=== PATIENT | male | born 1980 | race Caucasian/White ===

== ENCOUNTER 2016-10-25 13:25 | Day surgery (SDC) | payer BC ==
[~2016-10-25] VITALS: Ht 188 cm; Wt 106.0 kg
[~2016-10-25 13:25] MED LIST: BACTRIM,SEPT1 TABLET PO; CENTRUM COMPLE1 EACH PO; CIPRO500 MG PO; NORCO 5/3251 TABLET PO; OMNICEF300 MG PO; SUDOGEST60 MG PO
[2016-10-25] MEDS ORDERED: MOTRIN IB200 MG PO (13:50)
[2016-10-25 13:54] VITALS: BP 135/87
[2016-10-25] MEDS ORDERED: NORCO 5/3251 TABLET PO (16:49)
[2016-10-25 17:05] VITALS: BP 135/85
[2016-10-25 17:44] VITALS: BP 138/87
== END 2016-10-25 17:48 | disposition home or self-care (01) ==
LOC: SDC 13:25
PROC: 0D9P0ZZ Drainage of Rectum, Open Approach (ICD-10-PCS; principal; 2016-10-25)
DX: K61.0 Anal abscess (principal); Z83.3 Family history of diabetes mellitus; Z88.0 Allergy status to penicillin
CPT/HCPCS: 87070; 87075; 87205; J1100; J1335; J2250; J3010; J7050; S0020